=== PATIENT | male | born 1940 | race Caucasian/White ===

== ENCOUNTER 2016-06-05 13:43 | Emergency (ER) | payer MEDICARE ==
--- NOTE | 2016-06-05 16:17 | ERNOTE ---
Medical Problem HPI - Narrative Date of Service: 06/05/16 - General Chief Complaint: General Assessment Time Seen by Provider: 06/05/16 15:58 Source: patient Exam Limitations: no limitations - Immun/Allergies/Home Medications Immunizations: IMMUNIZATION HX Immunizations Up to Date Yes History of Influenza Vaccine Yes Hx Pneumococcal Vaccination Yes Allergies/Adverse Reactions: Allergies No Known Allergies Allergy (Unverified 06/05/16 14:08) Home Medications: HOME MEDICATIONS [place] 06/05/16 [Last Taken Unknown] Naproxen [Naprosyn] 500 mg PO BID PRN #60 tab 06/05/16 [Last Taken Unknown] Niacin 06/05/16 [Last Taken Unknown] - History of Present History Narrative: Pt. comes in with c/o B post neck pain that radiates to his shoulders and down to B arms. Pt. states that he is undergoing treatment for fibromyalgia but states that he has never had any tests confirming this diagnosis. Pt. states that he had a CVA two years ago in [place] without any further sequela from this. Pt. states that the episodes are sometimes accompanied by chest pain but denies any SOB, lasting chest pain, palpitations, NVD, abd pain, fevers, or other symptoms. Review of Systems - Review of Systems Constitutional: Present: no symptoms reported. Absent: recent illness, fever, chills, diaphoresis, malaise EYE: Present: no symptoms reported ENT: Present: no symptoms reported Respiratory: Present: no symptoms reported. Absent: shortness of breath, cough , wheezing Cardiology: Present: chest pain - occasional < 30 seconds Gastrointestinal/Abdominal: Present: no symptoms reported. Absent: nausea, vomiting, diarrhea Genitourinary: Present: no symptoms reported. Absent: frequency, pain, dysuria Musculoskeletal: Present: back pain, muscle pain - B shoulders, UE, traps, and pecs, muscle stiffness. Absent: neck pain, joint pain, joint swelling Skin: Present: no symptoms reported Neurological: Present: numbness, tingling - occasionally with pain episodes Endocrine: Present: no symptoms reported All Other Systems: All systems neg except as marked - Patient's Past Medical History Patient History - Medical: No pertinent hx Patient History - Cancer: No Hx of Cancer Patient History - Surgical Procedures: T & A - Social History Living Situations: home Smoking Status: Never smoker Have you smoked in the past 12 months: No Do you dip or chew tobacco: No Physical Exam - Physical Exam General Appearance: Present: wd/wn, alert, no apparent distress Eye Exam: Normal inspection: bilateral, PERRL: bilateral, EOMI: bilateral Ears, Nose, Throat: Present: normal ENT inspection Neck: Present: normal inspection, nontender, supple, full range of motion Respiratory: Present: no respiratory distress, normal breath sounds, no accessory muscle use, chest nontender Cardiovascular/Chest: Present: regular rate, rhythm, no murmur, normal peripheral pulses Gastrointestinal/Abdominal: Present: normal bowel sounds, nontender, nondistended, soft, no organomegaly Back Exam: Present: normal inspection, normal range of motion, no CVA tenderness , no vertebral tenderness Extremity Exam: Present: normal inspection, non-tender, no edema, normal range of motion Neurological Exam: Present: alert, oriented, normal mood/affect, no motor/ sensory deficits, auto hiker II-XII nml as tested, normal cerebellar test Skin Exam: Present: normal color, warm/dry ED Progress - Date and Time Seen: Date and Time: 06/05/16 16:15 As pt. has normal exam and no symptoms at this time but has severe symptoms occasioally feel that pt. would benefit from full neuromyofascial workup and should be referred to neurologist. 06/05/16 17:03 Will refer pt[address] to Dr Hale in [place] and treat pain symptoms with anti inflammatory for preventative. Do not feel further work up is required on emergent basis due to finding reason of pain in xray. - Results and Orders Patient's Lab Results:: I have reviewed the patient's lab results. - Vital Signs Patient's Vital Signs:: I have reviewed the patient's vital signs. Vital Signs: Vital Signs 06/05/16 13:59 Temperature 36.4 C L Pulse Rate 93 Respiratory 20 Rate Blood Pressure 159/108 O2 Sat by Pulse 96 Oximetry - X-Ray X-Ray #1 X-Ray: c-spine Interpretation: Interp. by me X-ray Comments: degenerative changes throughout cervical spine X-Ray #2 X-Ray: thoracic Interpretation: Interp. by me X-ray Comments: degenerative changes throughout thoracic spine with endplate spurring. - Progress/Reassessment Chief Complaint: General Assessment Departure - Departure Clinical Impression: Radiculopathy affecting upper extremity Degenerative disk disease Qualifiers: Spinal region: cervicothoracic Qualified Code(s): M50.33 - Other cervical disc degeneration, cervicothoracic region Disposition: Home self-care Condition: Good Instructions: Degenerative Disk Disease, Cervical Radiculopathy Additional Instructions: Please folow up with Dr Hale by calling to make appointment with his office in 2-3 days. Referrals: Tre Hale MD [[facility]] - Prescriptions: Naproxen [Naprosyn] 500 mg PO BID PRN #60 tab PRN Reason: Pain
[2016-06-05 17:04] LABS: Hematocrit 41.7 % (42.0-52.0); Hemoglobin 14.3 gm/dL (13.5-18.0); Mean Cell Volume 87.1 fl (78-100); Mean Corpuscular Hemoglobin 29.9 pg (27-31); Mean Corpuscular Hgb Conc 34.3 g/dl (32-36); Neutrophil # 5.7 K/mm3 (1.3-6.0); Neutrophil % 65.5 % (42-75.0); Platelet Count 204 K/mm3 (150-450); Red Blood Count 4.79 M/mm3 (4.7-6.0); Red Cell Distribution Width 12.8 % (11.5-14.0); White Blood Count 8.6 K/mm3 (4.0-10.5)
[2016-06-05 17:23] LABS: Albumin * 4.2 gm/dl (3.4-5.0); Anion Gap 15.5 mmol/L (6.8-13.8); BUN/Creatinine Ratio 20.7 (9.0-21.6); Bilirubin, Total 0.7 mg/dL (0.0-1.1); Ca. Corrected For Albumin 8.7 mg/dL (8.4-10.2); Calcium * 9.2 mg/dL (7.9-10.9); Carbon Dioxide 24.2 mmol/L (24-32.6); Phosphorus 3.2 mg/dL (2.2-4.2); Potassium 3.7 mmol/L (3.4-4.6); Total Protein 7.7 gm/dL (6.2-8.2)
[2016-06-05 17:26] LABS: Troponin I 3.158 ng/ml (0.00-0.10)
[2016-06-05] MEDS ORDERED: ASPIRIN 81 MG TAB.CHEW PO ONE (17:27)
[2016-06-05] MEDS ORDERED: ASPIRIN 81 MG TAB.CHEW ONE (17:56)
[2016-06-05 18:10] VITALS: BP 163/82
[2016-06-05] MEDS ORDERED: NITROGLYCERIN 0.4 MG/TAB BTL SL ONE (18:46)
== END 2016-06-05 18:58 | disposition short-term general hospital (02) ==
LOC: ER 13:43
DX: M50.33 Other cervical disc degeneration, cervicothoracic region (principal); M54.10 Radiculopathy, site unspecified; I21.4 Non-ST elevation (NSTEMI) myocardial infarction

== ENCOUNTER 2019-02-13 17:23 | Observation (INO) ==
[2019-02-13] MEDS ORDERED: NORMAL SALINE 1,000 ML IV ONE ×2 (18:02→18:37)
--- NOTE | 2019-02-13 18:09 | ERNOTE ---
ER Male HPI Date of Service: 02/13/19 Stated Complaint: blood in urine jaundice ER Male: other - "I can't tell you" Time Seen by Provider: 02/13/19 17:57 Source: patient Exam Limitations: clinical condition Immunizations: IMMUNIZATION HX Immunizations Up to Date Yes History of Influenza Vaccine Yes Hx Pneumococcal Vaccination Yes Allergies/Adverse Reactions: Allergies No Known Allergies Allergy (Verified 02/13/19 17:50) Home Medications: HOME MEDICATIONS acetaminophen 500 mg tablet 1,000 mg PO Q8H PRN #180 tab 11/12/18 [Last Taken Unknown] sennosides 8.6 mg tablet 8.6 mg PO DAILY PRN #30 tab 12/17/18 [Last Taken Unknown] Oxybutynin Chloride [Ditropan Xl] 10 mg PO BID PRN 12/23/18 [Last Taken Unknown] amlodipine 10 mg tablet 10 mg PO DAILY #28 tab 02/10/19 [Last Taken Unknown] aspirin 81 mg tablet,delayed release 81 mg PO DAILY #28 tab 02/10/19 [Last Taken Unknown] atorvastatin 40 mg tablet 40 mg PO HS #28 tab 02/10/19 [Last Taken Unknown] clopidogrel 75 mg tablet 75 mg PO DAILY #28 tab 02/10/19 [Last Taken Unknown] furosemide 20 mg tablet 20 mg PO DAILY #28 tab 02/10/19 [Last Taken Unknown] levetiracetam 500 mg tablet 500 mg PO BID #56 tab 02/10/19 [Last Taken Unknown] metoprolol tartrate 50 mg tablet 50 mg PO BID #56 tab 02/10/19 [Last Taken Unknown] tamsulosin 0.4 mg capsule 0.4 mg PO DAILY #30 cap 02/10/19 [Last Taken Unknown] ondansetron HCl 4 mg tablet 4 mg PO Q6H PRN #30 tab 02/11/19 [Last Taken Unknown] clonazepam 0.5 mg tablet 0.5 mg PO BID #60 tab 02/12/19 [Last Taken Unknown] linezolid 600 mg tablet 600 mg PO BID 10 Days #20 tab 02/13/19 [Last Taken Unknown] - History of Present Illness Narrative: When I ask the patient why he is here he states "I can't tell ya". He really does not provide any history. He by report was sent from the [facility] for confusion, blood in urine and vomiting. He is holding a vomit bag here. He is weaing sun glasses. He states "I have jaundice". I'm not sure who told him this and he does not know for how long. When I ask him if he is having pain he says "I don't know". No meaningful history is available from him. I have asked nursing to call the [facility] for additional history, there is no one here with him. Timing: Present: unsure Quality: Present: other - unknown Onset Location: Present: other - unknown Activities at Onset: Present: other - none clearly Prior Abdominal Problems: Absent: similar symptoms Modifying Factors - (Improves): Present: other - unknown Modifying Factors - (Worsens): Present: other - unknown Prior Treatment: Absent: recently seen Review of Systems - Narrative Narrative: unable d/t patient condition/confusion Medical History (Updated 01/23/19 @ 00:00 by ) Suprapubic catheter (Chronic) Onset Date: 11/[address] Guillermo Eng, [facility]. Hypertension (Chronic) Onset Date: Unknown Hyperlipidemia (Chronic) Onset Date: Unknown Autism Prostate cancer Anemia of chronic disease Onset Date: Unknown BPH (benign prostatic hyperplasia) Onset Date: Unknown CAD (coronary artery disease) Onset Date: Unknown Congestive heart failure Onset Date: Unknown Diverticulosis Onset Date: Unknown Feeding problem Onset Date: Unknown Continuous tube feeding at 50mL/hr. Jevity 1.2 kcal. Naso- duodenal. Heart murmur Onset Date: Unknown Strabismus Onset Date: Unknown Right eye. Urinary retention due to benign prostatic hyperplasia Acute kidney injury Onset Date: Unknown Acute respiratory failure with hypoxia Onset Date: Unknown Duodenal ulcer Onset Date: Unknown Endotracheally intubated Onset Date: 07/07/16 Impending respiratory failure; [facility] ([facility]) GI bleed Onset Date: Unknown Hemodynamic instability Onset Date: Unknown Hemorrhage, intracranial Onset Date: Unknown History of echocardiogram Onset Date: 06/06/16 Transesophageal echo. Respiratory failure Onset Date: Unknown CVA (cerebral vascular accident) Onset Date: Unknown Myocardial infarct Onset Date: Unknown Seizure Onset Date: Unknown Surgical History: Surgical History (Updated 09/25/18 @ 10:53 by Arianna Gorman RN) History of endoscopic biopsy of stomach Onset Date: 07/14/16 Negative for intestinal metaplasia or dysplasia per [facility]. History of biopsy Onset Date: 2007 Skin cancer on back. History of cardiac catheterization Onset Date: 06/11/16 Dr. Maradiaga, [facility]. Pulmonary artery cath. History of colonoscopy Onset Date: 2009 Normal. 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 History of cystoscopy Onset Date: 05/24/17 History of esophagogastroduodenoscopy (EGD) Onset Date: 07/02/16 History of suprapubic catheter Onset Date: 11/2017 History of tonsillectomy Onset Date: ~1945 Status post PICC central line placement Onset Date: 07/07/16 Subclavian. Family History: Family History (Updated 07/18/18 @ 10:49 by Arianna Gorman RN) Father , age 84 CVA (cerebral vascular accident) Mother , age 84 CHF (congestive heart failure) Brother , age 85 CHF (congestive heart failure) Sister Parkinson's disease Social History: (Last Reviewed 02/13/19 @ 18:07 by Goldy Rothman MD) Social History: adopted: No Marital status: lives independently: No household members: other number of children: 6 current occupational status: retired Highest education level completed: high school graduate Service: Yes branch: [employer] status: discharged Tobacco: Smoking Status: Former smoker Alcohol: alcohol intake: never Substance Use: substance use type: does not use Dietary Habits: caffeine: Yes Type: coffee Nathalie/Baptist: nathalie/baptist: Jehovahs Witness special nathalie needs: Yes agree to transfusion: No Physical Exam - Physical Exam General Appearance: Present: alert, no apparent distress Head Exam: Present: normal inspection, no evidence of injury Eye Exam: PERRL: bilateral Ears, Nose, Throat: Present: normal ENT inspection, dry mucous membranes Neck: Present: other - trachea midline Respiratory: Present: no respiratory distress, normal breath sounds, lungs clear Cardiovascular/Chest: Present: regular rate, rhythm Gastrointestinal/Abdominal: Present: normal bowel sounds, nondistended, soft, other - The patient grimaces with palpation of the RUQ and epigastrium. He states he is not having pain but clearly has discomfort with palpation mostly in the RUQ. Back Exam: Absent: CVA tenderness (R), CVA tenderness (L) Extremity Exam: Present: other - no deformity Neurological Exam: Present: other - confused but no clear acute unilateral focal motor or sensory deficits Skin Exam: Present: normal color, warm/dry, jaundice Progress - Results and Orders Patient's Lab Results:: I have reviewed the patient's lab results. - Vital Signs Patient's Vital Signs:: I have reviewed the patient's vital signs. Vital Signs: Vital Signs 02/13/19 17:50 Temperature 36.8 C Pulse Rate 70 Respiratory Rate 16 Blood Pressure 106/60 O2 Sat by Pulse Oximetry 100 - EKG EKG #1 EKG: NSR EKG read: Interp. by me EKG Comments: NSR rate 74. Non-specific with T wave inversions anteriorly. No clear evidence of STEMI - Progress/Reassessment Chief Complaint: Urinary Tract Problems Progress Note-Subjective: 02/13/19 19:51 02/13/19 19:52 I covered the patient with Zosyn and Vanco as the last UA culture available was multidrug resistant. I spoke with Dr Taylor and he requests CT scan abd/pelvis which will be obtained. I will check the patient out to DR Castillo at shift change pending CT report to discuss with Dr Taylor. - Transfer of Care Physician Sign Out: Goldy Rothman Receiving Physician: Abel Castillo Pending Results: CT/MRI results Expected Disposition: Admit Departure Clinical Impression: YOSI (acute kidney injury), Confusion, Anemia, Hematuria - Departure Disposition: Still a patient Condition: Fair Referrals: Niranjan Simmons DO [Primary Care Provider] -
[2019-02-13 18:15] LABS: Hematocrit 24.7 % (42.0-52.0); Hemoglobin 8.5 gm/dL (13.5-18.0); Mean Cell Volume 91.8 fl (78-100); Mean Corpuscular Hemoglobin 31.6 pg (27-31); Mean Corpuscular Hgb Conc 34.4 g/dl (32-36); Mean Platelet Volume 10.6 fl (8-11.3); Neutrophil # 7.1 K/mm3 (1.3-6.0); Platelet Count 240 K/mm3 (150-450); Red Blood Count 2.69 M/mm3 (4.7-6.0); Red Cell Distribution Width 13.2 % (11.5-14.0); White Blood Count 9.3 K/mm3 (4.0-10.5)
[2019-02-13 18:34] LABS: ALT 5 U/L (19-67); AST 14 U/L (0-48); Albumin * 3.1 gm/dl (3.4-5.0); Alkaline Phosphatase * 45 U/L (50-170); Anion Gap 17.8 mmol/L (6.8-13.8); BUN/Creatinine Ratio 15.5 (9.0-21.6); Bilirubin, Total 0.5 mg/dL (0.0-1.1); Blood Urea Nitrogen 33 mg/dL (6-23); Ca. Corrected For Albumin 8.6 mg/dL (8.4-10.2); Calcium * 8.2 mg/dL (7.9-10.9); Carbon Dioxide 22.4 mmol/L (24-32.6); Chloride 101 mmol/L (97-106); Glucose * 146 mg/dL (70-110); Lipase 79 U/L (73-393); Potassium 4.2 mmol/L (3.4-4.6); Sodium 137 mmol/L (132-142); Total Protein 6.1 gm/dL (6.2-8.2)
[2019-02-13 18:35] LABS: Troponin I Less than 0.017 ng/mL (0.00-0.10)
[2019-02-13] MEDS ORDERED: PIPERACILLIN SODIUM/TAZOBACTAM 3.375 GM in DEXTROSE 5 % IN WATER 100 ML IV ONE ×2 (18:36)
[2019-02-13 19:32] LABS: Urine Bilirubin 1 mg/dl (NEGATIVE); Urine Blood 250 /ul (NEGATIVE); Urine Ketone Negative (NEGATIVE); Urine Nitrite Negative (NEGATIVE); Urine Protein >=300 mg/dL (NEGATIVE); Urine Urobilinogen Normal (NORMAL)
[2019-02-13] MEDS ORDERED: VANCOMYCIN HCL 1 GM in DEXTROSE 5 % IN WATER 250 ML IV ONE ×2 (19:33)
[2019-02-13 19:36] LABS: Urine Appearance Turbid (CLEAR); Urine Bacteria None Seen; Urine Color Red; Urine RBC >50 /hpf (0-5); Urine WBC 0-5 /hpf (0-5)
[2019-02-13] MEDS ORDERED: VANCOMYCIN HCL 1 GM in DEXTROSE 5 % IN WATER 250 ML IV SCH ×2 (21:30)
[2019-02-13] MEDS ORDERED: LEVOFLOXACIN IN DEXTROSE 5 % 500 MG/100 ML BAG IV SCH (21:30)
[2019-02-13] MEDS ORDERED: ONDANSETRON HCL/PF 2 MG/ML VIAL IV PRN (21:37)
[2019-02-13] MEDS ORDERED: ONDANSETRON HCL/PF 2 MG/ML VIAL IV ONE (21:40)
[2019-02-13] MEDS: NORMAL SALINE 1,000 ML IV PRN (22:19)
[2019-02-13] MEDS ORDERED: SENNOSIDES 8.6 MG TABLET PO PRN (23:45)
[2019-02-14] MEDS ORDERED: ACETAMINOPHEN 500 MG TABLET PO PRN (00:03)
[2019-02-14] MEDS ORDERED: OXYBUTYNIN CHLORIDE 5 MG TABLET PO PRN (00:04)
[2019-02-14] MEDS: NORMAL SALINE 1,000 ML IV PRN ×2 (00:55→09:09)
[2019-02-14] MEDS: ONDANSETRON HCL 4 MG TABLET PO PRN ×2 (05:02→15:23)
[2019-02-14] MEDS ORDERED: clonazePAM 0.5 MG TABLET PO SCH (09:00)
[2019-02-14] MEDS ORDERED: amLODIPine BESYLATE 10 MG TABLET PO SCH (09:00)
[2019-02-14] MEDS ORDERED: METOPROLOL TARTRATE 50 MG TABLET PO SCH (09:00)
[2019-02-14] MEDS ORDERED: levETIRAcetam 500 MG TABLET PO SCH (09:00)
[2019-02-14] MEDS ORDERED: CLOPIDOGREL BISULFATE 75 MG TABLET PO SCH (09:00)
[2019-02-14] MEDS ORDERED: ONDANSETRON HCL/PF 2 MG/ML VIAL IV PRN (09:04)
[2019-02-14 09:22] LABS: Mean Cell Volume 93.3 fl (78-100); Mean Corpuscular Hemoglobin 31.1 pg (27-31); Mean Corpuscular Hgb Conc 33.3 g/dl (32-36); Neutrophil # 4.7 K/mm3 (1.3-6.0); Neutrophil % 75.7 % (42-75.0); Platelet Count 146 K/mm3 (150-450); Red Blood Count 2.09 M/mm3 (4.7-6.0); Red Cell Distribution Width 13.4 % (11.5-14.0); White Blood Count 6.3 K/mm3 (4.0-10.5)
[2019-02-14 09:29] LABS: Hemoglobin 6.5 gm/dL (13.5-18.0)
[2019-02-14 09:30] LABS: Hematocrit 19.5 % (42.0-52.0)
[2019-02-14] MEDS ORDERED: FUROSEMIDE 10 MG/ML VIAL IV ONE (09:31)
[2019-02-14 09:46] LABS: Albumin * 2.5 gm/dl (3.4-5.0); Anion Gap 12.8 mmol/L (6.8-13.8); BUN/Creatinine Ratio 16.3 (9.0-21.6); Bilirubin, Total 0.3 mg/dL (0.0-1.1); Ca. Corrected For Albumin 8.3 mg/dL (8.4-10.2); Calcium * 7.4 mg/dL (7.9-10.9); Carbon Dioxide 23.9 mmol/L (24-32.6); Potassium 3.7 mmol/L (3.4-4.6)
--- NOTE | 2019-02-14 14:22 | HPDIS ---
Chief Complaint - Chief Complaint Date of Service: 02/14/19 Time of Service: 08:30 Chief Complaint: Confusion, hematuria History of Present Illness: Talib is a 78 yo male with prostate cancer with urinary retention and a chronic suprapubic catheter. He had a urine culture that was recently positive for staph auricularis. Based on sensitivity, plans were to start Linezolid. His confusion worsened before starting this dose and he presented to the [facility] ER last night for evaluation. Hgb was 8.5 and creatinine was 2.1. He has thin dark red urine without clots. A CT was performed showing debris in the bladder and a kidney cyst. He has no leukocytosis or fever. He was started on Vancomycin and zosyn in the ER. Medical History (Updated 02/13/19 @ 19:55 by Goldy Rothman MD) Suprapubic catheter (Chronic) Onset Date: 11/[address] Guillermo Eng, [facility]. Hypertension (Chronic) Onset Date: Unknown Hyperlipidemia (Chronic) Onset Date: Unknown Autism Prostate cancer Anemia of chronic disease Onset Date: Unknown BPH (benign prostatic hyperplasia) Onset Date: Unknown CAD (coronary artery disease) Onset Date: Unknown Congestive heart failure Onset Date: Unknown Diverticulosis Onset Date: Unknown Feeding problem Onset Date: Unknown Continuous tube feeding at 50mL/hr. Jevity 1.2 kcal. Naso- duodenal. Heart murmur Onset Date: Unknown Strabismus Onset Date: Unknown Right eye. Urinary retention due to benign prostatic hyperplasia Acute kidney injury Onset Date: Unknown Acute respiratory failure with hypoxia Onset Date: Unknown Duodenal ulcer Onset Date: Unknown Endotracheally intubated Onset Date: 07/07/16 Impending respiratory failure; [facility]) GI bleed Onset Date: Unknown Hemodynamic instability Onset Date: Unknown Hemorrhage, intracranial Onset Date: Unknown History of echocardiogram Onset Date: 06/06/16 Transesophageal echo. Respiratory failure Onset Date: Unknown CVA (cerebral vascular accident) Onset Date: Unknown Myocardial infarct Onset Date: Unknown Seizure Onset Date: Unknown Surgical History: Surgical History (Updated 09/25/18 @ 10:53 by Arianna Gorman RN) History of endoscopic biopsy of stomach Onset Date: 07/14/16 Negative for intestinal metaplasia or dysplasia per [facility]. History of biopsy Onset Date: 2007 Skin cancer on back. History of cardiac catheterization Onset Date: 06/11/16 Dr. Maradiaga, [facility]. Pulmonary artery cath. History of colonoscopy Onset Date: 2009 Normal. 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 History of cystoscopy Onset Date: 05/24/17 History of esophagogastroduodenoscopy (EGD) Onset Date: 07/02/16 History of suprapubic catheter Onset Date: 11/2017 History of tonsillectomy Onset Date: ~1945 Status post PICC central line placement Onset Date: 07/07/16 Subclavian. Family History: Family History (Updated 07/18/18 @ 10:49 by Arianna Gorman RN) Father , age 84 CVA (cerebral vascular accident) Mother , age 84 CHF (congestive heart failure) Brother , age 85 CHF (congestive heart failure) Sister Parkinson's disease Social History: (Last Reviewed 02/13/19 @ 23:11 by So Chaudhry RN) Social History: adopted: No Marital status: lives independently: No household members: other number of children: 6 current occupational status: retired Highest education level completed: high school graduate Service: Yes branch: [employer] status: discharged Tobacco: Smoking Status: Former smoker Alcohol: alcohol intake: never Substance Use: substance use type: does not use Dietary Habits: caffeine: Yes Type: coffee Nathalie/Yarsani: nathalie/roman catholic: Jehovahs Witness special nathalie needs: Yes agree to transfusion: No Review Of Systems (GEN) - Review of Systems Generalized/Overall Review: Present: Weakness. Absent: Chills, Fever EENTM: Present: No Symptoms Reported Respiratory: Absent: Cough, Shortness of Breath Cardiac: Absent: Chest Pain, Edema Abdominal: Present: Nausea, Vomiting, Abdominal Pain Genitourinary: Present: Hematuria Musculoskeletal: Present: No Symptoms Reported Neurological: Present: No Symptoms Reported Skin: Present: No Symptoms Reported Immunizations: IMMUNIZATION HX Immunizations Up to Date Yes History of Influenza Vaccine Yes Hx Pneumococcal Vaccination Yes Allergies/Adverse Reactions: Allergies Allergy/AdvReac Type Severity Reaction Status Date / Time No Known Allergies Allergy Verified 02/13/19 17:50 Home Medications: HOME MEDICATIONS acetaminophen 500 mg tablet 1,000 mg PO Q8H PRN #180 tab 11/12/18 [Last Taken Unknown] sennosides 8.6 mg tablet 8.6 mg PO DAILY PRN #30 tab 12/17/18 [Last Taken Unknown] Oxybutynin Chloride [Ditropan Xl] 5 mg PO TID PRN 12/23/18 [Last Taken Unknown] amlodipine 10 mg tablet 10 mg PO DAILY #28 tab 02/10/19 [Last Taken Unknown] aspirin 81 mg tablet,delayed release 81 mg PO DAILY #28 tab 02/10/19 [Last Taken Unknown] atorvastatin 40 mg tablet 40 mg PO HS #28 tab 02/10/19 [Last Taken Unknown] furosemide 20 mg tablet 20 mg PO DAILY #28 tab 02/10/19 [Last Taken Unknown] levetiracetam 500 mg tablet 500 mg PO BID #56 tab 02/10/19 [Last Taken Unknown] metoprolol tartrate 50 mg tablet 50 mg PO BID #56 tab 02/10/19 [Last Taken Unknown] tamsulosin 0.4 mg capsule 0.4 mg PO DAILY #30 cap 02/10/19 [Last Taken Unknown] ondansetron HCl 4 mg tablet 4 mg PO Q6H PRN #30 tab 02/11/19 [Last Taken Unknown] clonazepam 0.5 mg tablet 0.5 mg PO BID #60 tab 02/12/19 [Last Taken Unknown] linezolid 600 mg tablet 600 mg PO BID 10 Days #20 tab 02/13/19 [Last Taken Unknown] Ferrous Gluconate 325 mg PO BID #60 tab 02/14/19 [Last Taken Unknown] Exam - Exam Vital Signs: Vital Signs - Last Taken Temp 37.4 C 02/14/19 10:00 Pulse 72 02/14/19 10:18 Resp 18 02/14/19 10:00 BP 117/46 02/14/19 10:18 Pulse Ox 97 02/14/19 10:00 Constitutional: Present: Alert, Oriented x3, Cooperative ENT Exam: Present: hearing grossly normal Eye Exam: bilateral eye: normal inspection Respiratory: Present: lungs clear, normal breath sounds Cardiovascular/Chest: Present: regular rate, rhythm Peripheral Pulses: radial (R): 2+, radial (L): 2+ Abdomen: Present: Normal bowel sounds, soft, nondistended, suprapubic tenderness /Rectal: Present: Other - Catheter and bag with thin, dark red urine Skin Exam: Present: normal color, warm/dry, no cyanosis Appearance: Present: appropriate appearance, appropriate insight Eye contact: Present: cooperative, good eye contact, normal speech Diagnostic Studies: Abnormal Lab Results 02/13/19 02/13/19 02/13/19 Range/Units 17:57 18:15 18:15 RBC 2.69 L (4.7-6.0) M/mm3 Hgb 8.5 L (13.5-18.0) gm/dL Hct 24.7 L (42.0-52.0) % MCH 31.6 H (27-31) pg Plt Count (150-450) K/mm3 Immature Gran % (Auto) 0.50 H (0.001-0.429) % Immature Gran # (Auto) 0.05 H (0.000-0.0310) K/mm3 Neutrophils % 76.0 H (42-75.0) % Lymphocytes % 17.6 L (20-51) % Neutrophils # 7.1 H (1.3-6.0) K/mm3 Lymphocytes # (1.5-3.5) k/mm3 Sodium (132-142) mmol/L Plasma Sodium (130-142) mmol/L Chloride (97-106) mmol/L Carbon Dioxide 22.4 L (24-32.6) mmol/L Anion Gap 17.8 H (6.8-13.8) mmol/L BUN 33 H (6-23) mg/dL Creatinine 2.13 H D (0.4-1.4) mg/dL Est GFR (Non-Af Amer) 32 L D (60-130) mL/min Random Glucose 146 H (70-110) mg/dL Lactic Acid, Venous 2.9 H* (0.4-2.0) mmol/L Calcium (7.9-10.9) mg/dL Calcium Adj for Albumin (8.4-10.2) mg/dL ALT 5 L (19-67) U/L Alkaline Phosphatase 45 L (50-170) U/L Total Protein 6.1 L (6.2-8.2) gm/dL Albumin 3.1 L (3.4-5.0) gm/dl Urine Protein (NEGATIVE) mg/dL Urine Blood (NEGATIVE) /ul Urine Bilirubin (NEGATIVE) mg/dl Prot Sulfosalicylic Acd (0) mg/dL Urine RBC (0-5) /hpf Crossmatch 02/13/19 02/13/19 02/14/19 Range/Units 18:45 19:11 09:10 RBC 2.09 L (4.7-6.0) M/mm3 Hgb 6.5 L* D (13.5-18.0) gm/dL Hct 19.5 L* D (42.0-52.0) % MCH 31.1 H (27-31) pg Plt Count 146 L (150-450) K/mm3 Immature Gran % (Auto) 0.50 H (0.001-0.429) % Immature Gran # (Auto) (0.000-0.0310) K/mm3 Neutrophils % 75.7 H (42-75.0) % Lymphocytes % 16.5 L (20-51) % Neutrophils # (1.3-6.0) K/mm3 Lymphocytes # 1.03 L (1.5-3.5) k/mm3 Sodium (132-142) mmol/L Plasma Sodium (130-142) mmol/L Chloride (97-106) mmol/L Carbon Dioxide (24-32.6) mmol/L Anion Gap (6.8-13.8) mmol/L BUN (6-23) mg/dL Creatinine (0.4-1.4) mg/dL Est GFR (Non-Af Amer) (60-130) mL/min Random Glucose (70-110) mg/dL Lactic Acid, Venous (0.4-2.0) mmol/L Calcium (7.9-10.9) mg/dL Calcium Adj for Albumin (8.4-10.2) mg/dL ALT (19-67) U/L Alkaline Phosphatase (50-170) U/L Total Protein (6.2-8.2) gm/dL Albumin (3.4-5.0) gm/dl Urine Protein >=300 H (NEGATIVE) mg/dL Urine Blood 250 H (NEGATIVE) /ul Urine Bilirubin 1 H (NEGATIVE) mg/dl Prot Sulfosalicylic Acd 4+ H (0) mg/dL Urine RBC >50 H (0-5) /hpf Crossmatch See Detail 02/14/19 Range/Units 09:10 RBC (4.7-6.0) M/mm3 Hgb (13.5-18.0) gm/dL Hct (42.0-52.0) % MCH (27-31) pg Plt Count (150-450) K/mm3 Immature Gran % (Auto) (0.001-0.429) % Immature Gran # (Auto) (0.000-0.0310) K/mm3 Neutrophils % (42-75.0) % Lymphocytes % (20-51) % Neutrophils # (1.3-6.0) K/mm3 Lymphocytes # (1.5-3.5) k/mm3 Sodium 143 H (132-142) mmol/L Plasma Sodium 144 H (130-142) mmol/L Chloride 110 H (97-106) mmol/L Carbon Dioxide 23.9 L (24-32.6) mmol/L Anion Gap (6.8-13.8) mmol/L BUN 26 H (6-23) mg/dL Creatinine 1.60 H D (0.4-1.4) mg/dL Est GFR (Non-Af Amer) 45 L D (60-130) mL/min Random Glucose 172 H (70-110) mg/dL Lactic Acid, Venous (0.4-2.0) mmol/L Calcium 7.4 L (7.9-10.9) mg/dL Calcium Adj for Albumin 8.3 L (8.4-10.2) mg/dL ALT 4 L (19-67) U/L Alkaline Phosphatase 40 L (50-170) U/L Total Protein 5.0 L (6.2-8.2) gm/dL Albumin 2.5 L (3.4-5.0) gm/dl Urine Protein (NEGATIVE) mg/dL Urine Blood (NEGATIVE) /ul Urine Bilirubin (NEGATIVE) mg/dl Prot Sulfosalicylic Acd (0) mg/dL Urine RBC (0-5) /hpf Crossmatch Laboratory Results WBC 6.3 K/mm3 (4.0-10.5) D 02/14/19 09:10 RBC 2.09 M/mm3 (4.7-6.0) L 02/14/19 09:10 Hgb 6.5 gm/dL (13.5-18.0) L* D 02/14/19 09:10 Hct 19.5 % (42.0-52.0) L* D 02/14/19 09:10 MCV 93.3 fl (78-100) 02/14/19 09:10 MCH 31.1 pg (27-31) H 02/14/19 09:10 MCHC 33.3 g/dl (32-36) 02/14/19 09:10 RDW 13.4 % (11.5-14.0) 02/14/19 09:10 Plt Count 146 K/mm3 (150-450) L 02/14/19 09:10 MPV 10.0 fl (8-11.3) 02/14/19 09:10 Immature Gran % (Auto) 0.50 % (0.001-0.429) H 02/14/19 09:10 Immature Gran # (Auto) 0.03 K/mm3 (0.000-0.0310) 02/14/19 09:10 75.7 % (42-75.0) H 02/14/19 09:10 16.5 % (20-51) L 02/14/19 09:10 6.2 % (0.0-9) 02/14/19 09:10 0.5 % (0.0-3.0) 02/14/19 09:10 0.6 % (0.0-1.0) 02/14/19 09:10 Nucleated RBC % 0.0 k/mm3 (0-1) 02/14/19 09:10 4.7 K/mm3 (1.3-6.0) 02/14/19 09:10 1.03 k/mm3 (1.5-3.5) L 02/14/19 09:10 0.4 k/mm3 (0.0-1.0) 02/14/19 09:10 0.0 k/mm3 (0.0-0.7) 02/14/19 09:10 Absolute Basophils 0.0 k/mm3 (0.0-0.1) 02/14/19 09:10 Sodium 143 mmol/L (132-142) H 02/14/19 09:10 144 mmol/L (130-142) H 02/14/19 09:10 Potassium 3.7 mmol/L (3.4-4.6) 02/14/19 09:10 Chloride 110 mmol/L (97-106) H 02/14/19 09:10 Carbon Dioxide 23.9 mmol/L (24-32.6) L 02/14/19 09:10 12.8 mmol/L (6.8-13.8) 02/14/19 09:10 BUN 26 mg/dL (6-23) H 02/14/19 09:10 1.60 mg/dL (0.4-1.4) H D 02/14/19 09:10 Est GFR (Non-Af Amer) 45 mL/min (60-130) L D 02/14/19 09:10 16.3 (9.0-21.6) 02/14/19 09:10 172 mg/dL (70-110) H 02/14/19 09:10 2.0 mmol/L (0.4-2.0) 02/13/19 21:00 Calcium 7.4 mg/dL (7.9-10.9) L 02/14/19 09:10 Calcium Adj for Albumin 8.3 mg/dL (8.4-10.2) L 02/14/19 09:10 0.3 mg/dL (0.0-1.1) 02/14/19 09:10 AST 14 U/L (0-48) 02/14/19 09:10 ALT 4 U/L (19-67) L 02/14/19 09:10 40 U/L (50-170) L 02/14/19 09:10 Less than 0.017 ng/mL (0.00-0.10) 02/13/19 18:15 5.0 gm/dL (6.2-8.2) L 02/14/19 09:10 2.5 gm/dl (3.4-5.0) L 02/14/19 09:10 79 U/L (73-393) 02/13/19 18:15 Red 02/13/19 19:11 Turbid (CLEAR) 02/13/19 19:11 7.0 pH (5.0-7.0) 02/13/19 19:11 Ur Specific [place] 1.020 SP.GR. (1.005-1.030) 02/13/19 19:11 >=300 mg/dL (NEGATIVE) H 02/13/19 19:11 Negative mg/dL (NEGATIVE) 02/13/19 19:11 Negative mg/dL (NEGATIVE) 02/13/19 19:11 250 /ul (NEGATIVE) H 02/13/19 19:11 Negative (NEGATIVE) 02/13/19 19:11 1 mg/dl (NEGATIVE) H 02/13/19 19:11 Negative (NEGATIVE) 02/13/19 19:11 Prot Sulfosalicylic Acd 4+ mg/dL (0) H 02/13/19 19:11 Normal EU/dl (NORMAL) 02/13/19 19:11 Ur Leukocyte Esterase Negative /ul (NEGATIVE) 02/13/19 19:11 >50 /hpf (0-5) H 02/13/19 19:11 0-5 /hpf (0-5) 02/13/19 19:11 Ur Epithelial Cells None seen /hpf (0-5) 02/13/19 19:11 None seen (NONE) 02/13/19 19:11 No culture indicated 02/13/19 19:11 Blood Type O Positive 02/13/19 18:45 Antibody Screen Negative 02/13/19 18:45 Crossmatch See Detail 02/13/19 18:45 Assessment/Plan - Narrative Narrative: Talib is a 78 yo male with multiresistant UTI Staph Auricularis. This is sensitive to vancomycin and linezolid. He was given Vancomycin and zosyn in the ER. Will discontinue zosyn and continue the vancomycin for now. Will plan to ultimately discharge to home on linezolid. Will repeat CBC and CMP to monitor blood and renal function as he has an elevated creatinine of 2.1 which is elevated above his baseline which is near 1.3. Will admit to observation at this time and may be able to discharge to home later today. - Assessment/Plan (1) UTI (urinary tract infection) Problem: Acute (2) Acute blood loss anemia Problem: Acute (3) YOSI (acute kidney injury) Problem: Acute (1) UTI (urinary tract infection) Problem: Acute (2) Acute blood loss anemia Problem: Acute (3) YOSI (acute kidney injury) Problem: Acute Date of Discharge:: 02/14/19 Description of Stay: Talib was admitted with UTI with acute kidney injury and acute blood loss anemia due to gross hematuria. Culture previously obtained is growing Staph Auricularis with multi-drug resistance. Culture is sensitive for vancomycin and linezolid. He was given vancomycin in the ER. Hemoglobin was initially 8.5 and on recheck was down to 6.5 after about 12 hours and fluids. He continues to have thin, dark red urine in his suprapubic catheter. He is on plavix from history of CAD and stroke. Creatinine was 2.1 but with fluids has improved to 1.6 and is near his baseline. Discussed with Talib about receiving a blood transfusion due to his hemoglobin of 6.5. He reports he is Jehova's Witness and declines blood transfusion. Will plan to give oral iron supplementation. Talib reports feeling well, he is not confused today, his renal function is back to near his baseline. He has significant anemia, but due to congregational beliefs I am only able to treat this with iron supplementation. He does not have blood clots in catheter bag and his bleeding is diffuse and would not benefit from urological procedure. I will hold his plavix and treat the UTI with linezolid to resolve bleeding. I will recheck Hemoglobin on Sunday in 3 days. Procedures Performed: none Results and Findings: Lab Pending Results 02/13/19 17:57: WBC 9.3, RBC 2.69 L, Hgb 8.5 L, Hct 24.7 L, MCV 91.8, MCH 31.6 H, MCHC 34.4, RDW 13.2, Plt Count 240, MPV 10.6, Immature Gran % (Auto) 0.50 H, Immature Gran # (Auto) 0.05 H, Neutrophils % 76.0 H, Lymphocytes % 17.6 L, Monocytes % 5.2, Eosinophils % 0.1, Basophils % 0.6, Nucleated RBC % 0.0, Neutrophils # 7.1 H, Lymphocytes # 1.64, Monocytes # 0.5, Eosinophils # 0.0, Absolute Basophils 0.1 02/13/19 18:15: Sodium 137, Plasma Sodium 138, Potassium 4.2, Chloride 101, Carbon Dioxide 22.4 L, Anion Gap 17.8 H, BUN 33 H, Creatinine 2.13 H D, Est GFR (Non-Af Amer) 32 L D, BUN/Creatinine Ratio 15.5, Random Glucose 146 H, Calcium 8.2, Calcium Adj for Albumin 8.6, Total Bilirubin 0.5, AST 14, ALT 5 L, Alkaline Phosphatase 45 L, Troponin I Less than 0.017, Total Protein 6.1 L, Albumin 3.1 L, Lipase 79 02/13/19 18:15: Lactic Acid, Venous 2.9 H* 02/13/19 18:45: Blood Type O Positive, Antibody Screen Negative, Crossmatch See Detail 02/13/19 19:11: Urine Color Red, Urine Appearance Turbid, Urine pH 7.0, Ur Specific [place] 1.020, Urine Protein >=300 H, Urine Glucose (UA) Negative, Urine Ketones Negative, Urine Blood 250 H, Urine Nitrate Negative, Urine Bilirubin 1 H, Urine Ictotest Negative, Prot Sulfosalicylic Acd 4+ H, Urine U robilinogen Normal, Ur Leukocyte Esterase Negative, Urine RBC >50 H, Urine WBC 0-5, Ur Epithelial Cells None seen, Urine Bacteria None seen, Urine Culture Comments No culture indicated 02/13/19 21:00: Lactic Acid, Venous 2.0 02/14/19 09:10: WBC 6.3 D, RBC 2.09 L, Hgb 6.5 L* D, Hct 19.5 L* D, MCV 93.3, MCH 31.1 H, MCHC 33.3, RDW 13.4, Plt Count 146 L, MPV 10.0, Immature Gran % (Auto) 0.50 H, Immature Gran # (Auto) 0.03, Neutrophils % 75.7 H, Lymphocytes % 16.5 L, Monocytes % 6.2, Eosinophils % 0.5, Basophils % 0.6, Nucleated RBC % 0.0, Neutrophils # 4.7, Lymphocytes # 1.03 L, Monocytes # 0.4, Eosinophils # 0.0, Absolute Basophils 0.0 02/14/19 09:10: Sodium 143 H, Plasma Sodium 144 H, Potassium 3.7, Chloride 110 H, Carbon Dioxide 23.9 L, Anion Gap 12.8, BUN 26 H, Creatinine 1.60 H D, Est GFR (Non-Af Amer) 45 L D, BUN/Creatinine Ratio 16.3, Random Glucose 172 H, Calcium 7.4 L, Calcium Adj for Albumin 8.3 L, Total Bilirubin 0.3, AST 14, ALT 4 L, Alkaline Phosphatase 40 L, Total Protein 5.0 L, Albumin 2.5 L Discharge Location: Home Disposition: Home self-care Condition: Fair Discharge Activity: Activity as tolerated Discharge Diet: General/regular food Referrals: Niranjan Simmons DO [Primary Care Provider] - One Week Problem Oriented Discharge Instructions to Patient/Family: Urinary Tract Infection, Adult, [id number] Additional Patient Instructions (free text): -Please make TCM appointment unless intermediate discharge, or if following up with outside provider. Thank you! Avis @ [phone] or Angle at [phone]. Prescriptions (Any new or edited meds): Ferrous Gluconate 325 mg PO BID #60 tab Complete Home Medications List: Complete Home Medication List: acetaminophen 500 mg tablet 1,000 mg PO Q8H PRN #180 tab 11/12/18 sennosides 8.6 mg tablet 8.6 mg PO DAILY PRN #30 tab 12/17/18 Oxybutynin Chloride [Ditropan Xl] 5 mg PO TID PRN 12/23/18 amlodipine 10 mg tablet 10 mg PO DAILY #28 tab 02/10/19 aspirin 81 mg tablet,delayed release 81 mg PO DAILY #28 tab 02/10/19 atorvastatin 40 mg tablet 40 mg PO HS #28 tab 02/10/19 furosemide 20 mg tablet 20 mg PO DAILY #28 tab 02/10/19 levetiracetam 500 mg tablet 500 mg PO BID #56 tab 02/10/19 metoprolol tartrate 50 mg tablet 50 mg PO BID #56 tab 02/10/19 tamsulosin 0.4 mg capsule 0.4 mg PO DAILY #30 cap 02/10/19 ondansetron HCl 4 mg tablet 4 mg PO Q6H PRN #30 tab 02/11/19 clonazepam 0.5 mg tablet 0.5 mg PO BID #60 tab 02/12/19 linezolid 600 mg tablet 600 mg PO BID 10 Days #20 tab 02/13/19 Ferrous Gluconate 325 mg PO BID #60 tab 02/14/19 Amb Orders for Discharge: CBC Time Frame: 02/17/19, Location: Laboratory Comprehensive Metabolic Panel Time Frame: 02/17/19, Location: Laboratory
[2019-02-14 15:16] VITALS: BP 136/59
[2019-02-14] MEDS ORDERED: TAMSULOSIN HCL 0.4 MG CAP.SR.24H PO SCH (18:00)
[2019-02-14] MEDS ORDERED: ROSUVASTATIN CALCIUM 10 MG TABLET PO SCH (21:00)
[2019-02-14] MEDS ORDERED: ROSUVASTATIN CALCIUM 20 MG TABLET PO SCH (21:00)
[2019-02-14] MEDS ORDERED: VANCOMYCIN HCL 1 GM in DEXTROSE 5 % IN WATER 250 ML IV SCH ×2 (21:30)
== END 2019-02-14 15:30 | disposition home or self-care (01) ==
LOC: ER 17:23 → MS 17:23
PROVIDERS: ADMIT Internal Medicine; ATTEND Family Medicine
DX: D62 Acute posthemorrhagic anemia; N39.0 Urinary tract infection, site not specified; N17.9 Acute kidney failure, unspecified
CPT/HCPCS: 36415; 74176; 80053; 81001; 83605; 83690; 84484; 85025; 86850; 87040; 87081; 93005; 96361; 96365; 96367; 96375; 99285; G0378; J2405